=== PATIENT | male | born 1980 | race African-American/Black ===

== ENCOUNTER 2025-04-06 22:46 | Emergency (ER) | payer SELFPAY ==
[~2025-04-06] VITALS: Ht 182.9 cm; Wt 138.0 kg
[2025-04-06 22:48] VITALS: O2SAT 100
[2025-04-06] MEDS: MORPHINE SULFATE 4 MG/ML INJ (FOR IV/IM USE) IV STA (23:56)
[2025-04-06] MEDS: ONDANSETRON HCL 4MG/2ML INJ IV STA (23:57)
[2025-04-07] MEDS: SODIUM CHLORIDE 0.9% 1,000 ML IV ONE (00:26)
[2025-04-07 01:00] LABS: BASOPHILS % 0.6 % (0.0-2.0); EOSINOPHILS % 0.6 % (0.0-5.0); HEMATOCRIT. 45.9 % (42.0-52.0); HEMOGLOBIN. 15.2 g/dL (14.0-18.0); LYMPHOCYTES % 25.7 % (20.0-50.0); MEAN CORPUSCULAR HEMOGLOBIN 31.7 pg (28.0-32.0); MEAN CORPUSCULAR HGB CONC 33.2 g/dL (31.0-37.0); MEAN CORPUSCULAR VOLUME 95.5 fL (80.0-94.0); MEAN PLATELET VOLUME 8.4 fl (7.4-10.4); NEUTROPHILS % 65.1 % (40.0-76.0); PLATELET 206 x1000/uL (130-400); RED BLOOD CELL COUNT 4.81 mill/uL (4.7-6.1); WHITE BLOOD COUNT 8.4 x1000/uL (4.5-11.0)
[2025-04-07 01:05] LABS: CHLORIDE 103 mEq/L (98-107); POTASSIUM 3.8 mEq/L (3.5-5.1); SODIUM 140 mEq/L (136-145)
[2025-04-07 01:06] LABS: CARBON DIOXIDE 29 mEq/L (21-32)
[2025-04-07 01:07] LABS: CALCIUM 9.5 mg/dL (8.7-10.4)
[2025-04-07 01:12] LABS: CREATININE 1.2 mg/dL (0.6-1.3); GLUCOSE 134 mg/dL (70-105); UREA NITROGEN BLOOD 11 mg/dL (9-23)
[2025-04-07 01:14] LABS: ALANINE AMINOTRANSFERASE 46 IU/L (10-49); ALBUMIN 4.5 g/dL (3.2-4.8); ASPARTATE AMINOTRANSFERASE 31 IU/L (<34); BILIRUBIN DIRECT 0.1 mg/dL (<=3.0); BILIRUBIN TOTAL 0.6 mg/dL (0.1-1.0); PROTEIN TOTAL 7.5 g/dL (6.0-8.3)
[2025-04-07 02:11] LABS: PARTIAL THROMBOPLASTIN TIME 28.8 sec (23.4-31.0)
[2025-04-07] MEDS: KETOROLAC 15MG/ML VIAL IV ONE (02:14)
[2025-04-07 03:57] LABS: CLARITY URINE CLEAR (CLEAR); COLOR URINE YELLOW (YELLOW); GLUCOSE URINE NEGATIVE (NEGATIVE); KETONES URINE NEGATIVE (NEGATIVE); LEUKOCYTE ESTERASE URINE NEGATIVE (NEGATIVE); NITRITE URINE NEGATIVE (NEGATIVE); OCCULT BLOOD URINE 3+ (NEGATIVE); PROTEIN URINE 1+ (NEGATIVE); SPECIFIC GRAVITY URINE 1.012 (1.005-1.030); UROBILINOGEN URINE 0.2 E.U./dL (0.2-1.0)
[2025-04-07] MEDS ORDERED: HYDR-4001 MT (06:18)
[2025-04-07] MEDS ORDERED: TAMS-54 MT (06:18)
[2025-04-07] MEDS ORDERED: IBUP-2028 MT (06:18)
[2025-04-07 06:42] LABS: RBC URINE 50-100 /hpf (0-2); SQUAMOUS EPITHELIAL CELL URINE NONE SEEN /lpf (RARE/1+); WBC URINE 0-2 /hpf (0-2)
[2025-04-07 06:44] LABS: BACTERIA URINE NONE SEEN
[2025-04-07 06:49] VITALS: BP 147/86; PULSE 69; RESP 16; TEMP 37.2; O2SAT 95
== END 2025-04-07 07:10 | disposition home or self-care (01) ==
LOC: ER 23:19
DX: R10.31 Right lower quadrant pain (principal); N13.2 Hydronephrosis with renal and ureteral calculous obstruction; Z79.899 Other long term (current) drug therapy
CPT/HCPCS: 36415; 71045; 93005; 96374; 96375 ×2; 99285; 80076; 80048; 81003; 83690; 85025; 85610; 85730; 86850; 86900; 86901; 74176; 96361; J2405; J2270; J7030; Z7610 ×2; J1885